=== PATIENT | female | born 1985 | race African-American/Black ===

== ENCOUNTER 2021-03-27 02:25 | Observation (INO) | payer BC, SELFPAY ==
[~2021-03-27] VITALS: Ht 162.6 cm; Wt 77.1 kg
[2021-03-27] MEDS ORDERED: cefTRIAXone 1 GM IVPB PREMIX 50 ML IV ONE (03:30)
[2021-03-27] MEDS: LR 1,000 ML IV SCH ×3 (03:43→05:40)
[2021-03-27] MEDS: TERBUTALINE SULFATE 1 MG/ML VIAL SUBCUT PRN ×2 (03:44→04:22)
[2021-03-27] MEDS ORDERED: cefTRIAXone 1 GM VIAL ONE (03:50)
[2021-03-27 04:52] LABS: BILIRUBIN,URINE NEGATIVE (NEGATIVE); BLOOD, URINE NEGATIVE (NEGATIVE); CLARITY/URINE CLEAR (CLEAR); COLOR,URINE YELLOW (YELLOW); GLUCOSE,URINE NEGATIVE (NEGATIVE); KETONES,URINE NEGATIVE (NEGATIVE); LEUKOCYTE ESTERASE ,URINE NEGATIVE (NEGATIVE); NITRITE, URINE NEGATIVE (NEGATIVE); PROTEIN URINE NEGATIVE (NEGATIVE); UROBILINOGEN,URINE 0.2 (0.2-1.0)
[2021-03-27] MEDS ORDERED: TERBUTALINE SULFATE 1 MG/ML VIAL ONE (09:42)
[2021-03-27] MEDS ORDERED: MORPHINE 4 MG INJ. 4 MG/ML VIAL IVP ONE (09:45)
[2021-03-27] MEDS ORDERED: TERBUTALINE SULFATE 1 MG/ML VIAL SUBCUT PRN (09:45)
[2021-03-27] MEDS ORDERED: BETAMET ACET/BETAMET NA PH 30 MG/5 ML VIAL IM SCH (09:45)
[2021-03-27] MEDS ORDERED: MORPHINE SULFATE 10 MG/ML VIAL IVP ONE (10:15)
== END 2021-03-27 11:59 | disposition home or self-care (01) ==
LOC: SPU 02:25
PROVIDERS: ADMIT Obstetrics & Gynecology; ATTEND Obstetrics & Gynecology
DX: O62.9 Abnormality of forces of labor, unspecified (principal); Z20.822 Contact with and (suspected) exposure to COVID-19; Z3A.24 24 weeks gestation of pregnancy
CPT/HCPCS: 36415; 76815; 81002; 81003; 87426; 96361; 96365; 96372; 96375; G0378; J0696; J0702; J2270; J3105; 59899